=== PATIENT | female | born 1955 | race Caucasian/White ===

== ENCOUNTER 2019-10-24 12:26 | Inpatient (IN) ==
[2019-10-24] MEDS ORDERED: Lidocaine -MPF 2% 2 ML VIAL ONE (12:40)
[2019-10-24] MEDS ORDERED: *HR* FentaNYL (PF) 100 MCG/2 ML VIAL ONE (12:40)
[2019-10-24] MEDS ORDERED: Lidocaine -MPF 4% 5 ML AMPUL ONE (12:40)
[2019-10-24] MEDS ORDERED: Dexamethasone 4 MG/ML VIAL ONE (12:40)
[2019-10-24] MEDS ORDERED: *HR* Rocuronium Bromide 50 MG/5 ML VIAL ONE (12:40)
[2019-10-24] MEDS ORDERED: Ondansetron 4 MG/2 ML VIAL ONE (12:40)
[2019-10-24] MEDS ORDERED: *HR* Midazolam HCl 2 MG/2 ML VIAL ONE (12:40)
[2019-10-24] MEDS ORDERED: *HR* Propofol 200 MG/20 ML VIAL IVP ONE (12:41)
[2019-10-24] MEDS ORDERED: CeFAZolin Syr 2,000MG/20 ML 2,000 MG/20 ML SYRINGE IVPB ONE (12:47)
[2019-10-24] MEDS ORDERED: Ropivacaine/PF 0.5% 30 ML VIAL ONE (12:48)
[2019-10-24] MEDS ORDERED: ROPIVACAINE/PF/NS 0.25% 1 EACH SYRINGE INTRAART ONE (12:48)
[2019-10-24] MEDS ORDERED: Ringers Solution, Lactated 1,000 ML IVC SCH (13:00)
[2019-10-24] MEDS ORDERED: Ethanol\\Acetic Acid\\Na Ace\\Ben 1,000 ML IRRIG.SOLN IR ONE (13:25)
[2019-10-24] MEDS ORDERED: Vancomycin 1,000 MG VIAL ONE (13:25)
[2019-10-24] MEDS ORDERED: Ondansetron 4 MG/2 ML VIAL IVP ONE (13:46)
[2019-10-24] MEDS ORDERED: *HR* OxyCODONE Immed Rel 5 MG TABLET PO PRN ×2 (13:46→18:11)
[2019-10-24] MEDS ORDERED: *HR* HYDROmorphone PF 0.5 MG/0.5 ML SYRINGE IVP PRN (13:46)
[2019-10-24] MEDS ORDERED: EPHEDrine 50 MG/ML VIAL ONE (16:24)
[2019-10-24] MEDS ORDERED: Albuterol 2.5 MG/3 ML NEBULIZER IH ONE (17:35)
[2019-10-24 17:55] LABS: Hematocrit 34.9 % (35.3-44.9); Hemoglobin 11.5 g/dL (11.5-15.4)
[2019-10-24] MEDS ORDERED: *HR* Enoxaparin 30 MG/0.3 ML SYRINGE SQ SCH (18:00)
[2019-10-24] MEDS ORDERED: Ondansetron 4 MG/2 ML VIAL IVP PRN (18:11)
[2019-10-24] MEDS ORDERED: Sennosides 8.6 MG TABLET PO PRN (18:11)
[2019-10-24] MEDS ORDERED: *HR* OxyCODONE/APAP 5/325 TABLET PO PRN (18:11)
[2019-10-24] MEDS ORDERED: Naloxone 0.4 MG/ML INJ IVP PRN (18:11)
[2019-10-24] MEDS ORDERED: Ibuprofen 200 MG TABLET PO PRN (18:11)
[2019-10-24] MEDS ORDERED: MOM Conc 10 ML UD.LIQ PO PRN (18:11)
[2019-10-24] MEDS: Ringers Solution, Lactated 1,000 ML IVC SCH ×2 (18:41→23:28)
[2019-10-24] MEDS: Ipratropium 1 PUFF INHALER IH SCH ×2 (21:13→21:14)
[2019-10-24] MEDS: CeFAZolin 2 GM/120 ML BAG IVPB SCH (23:26)
[2019-10-25] MEDS: Ipratropium 1 PUFF INHALER IH SCH ×2 (05:12→10:52)
[2019-10-25] MEDS ORDERED: *HR* Enoxaparin 30 MG/0.3 ML SYRINGE SQ SCH (06:00)
[2019-10-25 06:52] LABS: Hematocrit 28.8 % (35.3-44.9); Hemoglobin 9.4 g/dL (11.5-15.4)
[2019-10-25 07:07] VITALS: BP 136/74
[2019-10-25 07:12] LABS: BUN/Creatinine Ratio 19 (6-26); Blood Urea Nitrogen 8 mg/dL (8-23); Calcium 8.3 mg/dL (8.6-10.3); Carbon Dioxide 24 mEq/L (23-29); Chloride 98 mEq/L (98-107); Glucose 107 mg/dL (70-105); Osmolality,Calculated 267 (280-300); Sodium 129 mEq/L (136-145); eGFR For African Americans > 60 (> 60); eGFR For Non-African Americans > 60 (> 60)
[2019-10-25] MEDS: CeFAZolin 2 GM/120 ML BAG IVPB SCH (08:53)
[2019-10-25] MEDS ORDERED: lisinopriL 5 MG TABLET PO SCH (09:00)
[2019-10-25] MEDS ORDERED: Cholecalciferol (D-3) 1,000 UNIT (25MCG) TABLET PO SCH (09:00)
[2019-10-25] MEDS ORDERED: Tiotropium 18 MCG inhalation IH SCH (10:00)
== END 2019-10-25 12:20 | disposition home or self-care (01) | DRG 483 ==
LOC: SAMDAY 12:26 → 3NENU 17:50
PROVIDERS: ADMIT Orthopaedic Surgery; ATTEND Orthopaedic Surgery